=== PATIENT | female | born 1995 | race Caucasian/White ===

== ENCOUNTER 2017-10-04 11:39 | Emergency (ER) | payer SELFPAY ==
[2017-10-04 14:17] LABS: Pregnancy Test - Urine (BHCG) Negative (Negative); Pregu Control Background? CLEAR/WHITE (CLR/WHITE); Pregu Control Bar Appear? YES (CONTROL BAR); Specific Gravity 1.021 (1.002-1.036)
[2017-10-04 15:05] LABS: Bilirubin Negative (Negative); Blood, Urine Small (Negative); Clarity TURBID (Clear); Glucose, Urine (Dipstick) Negative (Negative); Leukocyte Trace (Negative); Nitrite Positive (Negative); Protein, Urine (Dipstick) Negative (Neg-Trace); pH, Urine 7.5 (5.0-9.0)
[2017-10-04 15:11] LABS: Bacteria/HPF 4+ HPF (None Seen); Hyaline Casts/LPF 0-3 HYALINE CAST LPF (0-3 Hyaline); Pathc Cast-AUWi Flag 0.13 (0-2.49); RBC/HPF 0-3 HPF (0-3); Squamous Epithelial 0-3 HPF (0-3); WBC/HPF 0-3 HPF (0-3)
[2017-10-04 15:13] LABS: Specific Gravity, Urine 1.021 (1.002-1.036)
[2017-10-07 20:27] LABS: Chlamydia by PCR Not Detected (NotDetected); GC by PCR Not Detected (NotDetected)
== END 2017-10-04 15:30 | disposition home or self-care (01) ==
LOC: ERS 11:39
DX: N93.9 Abnormal uterine and vaginal bleeding, unspecified (principal); F41.9 Anxiety disorder, unspecified; F17.290 Nicotine dependence, other tobacco product, uncomplicated
CPT/HCPCS: 81003; 81015; 81025; 87480; 87491; 87510; 87591; 87660; 99284

== ENCOUNTER 2018-02-20 10:58 | Emergency (ER) | payer SELFPAY | END 2018-02-20 12:00 | disposition home or self-care (01) | LOC: ERS 10:58 | DX: A60.04 Herpesviral vulvovaginitis (principal); F41.9 Anxiety disorder, unspecified; F17.290 Nicotine dependence, other tobacco product, uncomplicated | CPT/HCPCS: 99283 ==

== ENCOUNTER 2019-01-01 07:31 | Outpatient (CLI) | payer BC ==
--- NOTE | 2019-01-01 08:34 | RAD ---
EXAM: XR Cerv Sp Ap Lat STANDARD PROVIDED CLINICAL HISTORY: Neck pain. Postsurgical changes of the spine since age 12. COMPARISON: 11/21/2016 FINDINGS: C1-2 to the cervical thoracic junction is seen on the lateral view. There is slight reversal of the n ormal cervical lordotic curvature. This is a stable finding. Postsurgical changes thoracolumbar spine are again noted with Walker rods again seen. There is fusion of the C7-T1 level. Multilevel degenerative changes are seen throughout the remainder of the cervical spine with osteophytes and narrowing of the intervertebral disc spaces. The greatest degree of posterior osteophyte formation is seen at the C4-5 level. The vertebral body heights are within normal limits, and no fracture or subluxation is seen. The prevertebral soft tissues are within normal limits. IMPRESSION: Stable degenerative changes of the cervical spine with stable postsurgical changes of the cervicothor acic spine. No fracture or subluxation is seen on the provided lateral images with flexion and extension..
[2019-01-01] MEDS ORDERED: Gadobenate Dimeglumine 529 MG/1 ML (20ML VIAL) ONE (09:00)
--- NOTE | 2019-01-01 09:40 | MRI ---
MRI CERVICAL SPINE WITH AND WITHOUT CONTRAST: Multiplanar, multisequential imaging of the cervical spine obtained. Postcontrast images were obtain ed with administration of 10 cc MultiHance IV. INDICATION: Neck pain. Prior Franki yoly placement at age 12. FINDINGS: Mild scoliotic curvature with convexity to the left noted in the cervical spine. There are degenerat lubna changes apparent with spurring from the cervical vertebrae. Mild anterior wedging of C3, C4, C5, and C6 vertebrae. Mild loss of disk space at these levels. At C2-3, no significant abnormality. At C3-4, there is a posterior spur centrally best noted on axial imaging indenting the anterior theca l sac. No significant cord impingement apparent. At C4-5, there is a prominent disk-osteophyte complex which projects to the right and is associated w ith uncinate hypertrophy. This is best appreciated on sagittal images. This impinges on and flatten s the anterior card on the right and results in right foraminal stenosis and displacement of the exit ing right C5 nerve root and probable displacement of the traversing right C6 nerve root. At C5-6, no significant disk bulge or spondylosis. No central canal or foraminal stenosis. At C6-7 and C7-T1, no significant abnormality. Cord signal is normal. No abnormal enhancement identified. IMPRESSION: 1. Mild scoliosis of the cervical spine with convexity to the left. There are degenerative changes as described above. 2. There is a prominent disk-osteophyte complex projecting to the right at C4-5 impinging on and fla ttening the anterior cord on the right and resulting in right foraminal stenosis and displacement of exiting nerve root as described above. CT may be of benefit to better characterize osseous changes. POS: RIANA
== END 2019-01-01 07:32 | disposition home or self-care (01) ==
LOC: SCSMRI 07:31
PROVIDERS: ATTEND Neurological Surgery
DX: M41.9 Scoliosis, unspecified (principal); M47.22 Other spondylosis with radiculopathy, cervical region; M54.2 Cervicalgia; M48.02 Spinal stenosis, cervical region; M25.78 Osteophyte, vertebrae; Z98.890 Other specified postprocedural states
CPT/HCPCS: 72040; 72156; A9577

== ENCOUNTER 2022-08-31 06:56 | Outpatient (CLI) | payer OTHER | END 2022-08-31 06:57 | disposition home or self-care (01) | LOC: BICULT 06:56 | PROVIDERS: ATTEND Surgery | DX: R22.2 Localized swelling, mass and lump, trunk (principal) | CPT/HCPCS: 76999 ==